=== PATIENT | female | born 1980 | race Hispanic/Latino ===

== ENCOUNTER 2016-10-15 22:15 | Emergency (ER) | payer OTHER ==
[2016-10-15 22:51] LABS: MANUAL DIFF NEEDED? NO
[2016-10-15 22:53] LABS: BASO% 0.6 % (0.0-0.8); EOS# 0.48 X1000 (0.0-0.7); HEMATOCRIT 41.8 % (37.0-47.0); HEMOGLOBIN 14.4 g/dL (12.0-16.0); IMM GRAN# 0.04 X1000 (0.0-0.04); IMM GRAN% 0.4 % (0.0-0.5); LYMPH# 3.89 X1000 (1.2-3.4); LYMPH% 40.3 % (20.5-51.1); MCHC 34.4 g/dL (33-37); MCV 90.1 FL (81-99); MONO# 0.99 X1000 (0.11-0.59); MONO% 10.2 % (1.7-9.3); MPV 10.6 FL (7.4-10.4); NEUT% 43.5 % (42.2-75.2); PLT 265 X1000 (130-400); RBC 4.64 XMIL (4.2-5.4)
[2016-10-15] MEDS ORDERED: NS 1,000 ML IV ONE (23:31)
[2016-10-15] MEDS ORDERED: ZOFRAN IV ONE (23:32)
[2016-10-15] MEDS ORDERED: MORPHINE IV ONE (23:32)
[2016-10-15 23:47] LABS: AGAP 15; ALBUMIN 4.2 g/dL (3.5-5.0); ALKALINE PHOSPHATASE 52 U/L (32-104); AMYLASE 97 U/L (20-200); BUN 14 mg/dL (8-22); CALCIUM 9.4 mg/dL (8.8-10.2); CHLORIDE 104 mmol/L (98-107); COSMO 284; GOT 14 U/L (10-30); GPT 7 U/L (10-36); LIPASE 66 U/L (13-60); POTASSIUM 3.8 mmol/L (3.5-5.1); SODIUM 142 mmol/L (136-145); TCO2 23 mmol/L (25-35); TOTAL BILIRUBIN 0.16 mg/dL (0.20-1.00)
--- NOTE | 2016-10-16 01:01 | PROVIDER DOCUMENTATION ---
HPI-Abdominal Pain/GI Problem - General Chief Complaint: Abdominal Pain Stated Complaint: ABD PAIN, THOMAS Time Seen by Provider: 10/15/16 23:20 Source: patient, family Allergies/Adverse Reactions: Patient Allergies Allergy/AdvReac Type Severity Reaction Status Date / Time prochlorperazine AdvReac IT MAKES Verified 10/01/16 16:14 [From Compazine] ME COME OUT OF MY SKIN prochlorperazine edisylate * AdvReac IT MAKES Verified 10/01/16 16:14 [From Compazine] ME COME OUT OF MY SKIN prochlorperazine maleate * AdvReac IT MAKES Verified 10/01/16 16:14 [From Compazine] ME COME OUT OF MY SKIN Home Medications: Levothyroxine Sodium [Synthroid] 137 mcg PO DAILY 10/01/16 Lorazepam [Ativan] 1 mg PO QHS PRN 10/01/16 - History of Present Illness-ABD Nature of Presenting Problems: 35 year old WF presents with c/o of a two day history of abdominal pain, nausea , vomiting, 6 times today, fever to 102 x 2 days. pt reports she was evaluated last week for the same, given IV pain meds, was dc'd home and was improved until yesterday. Abdominal Pain Onset Location: reports: RUQ, epigastric, flank (bilateral) Pain Radiation: reports: RUQ Quality of Pain: reports: aching, burning, cramping, dull Severity in ED: reports: mild Onset/Duration: reports: 2 days ago Timing: reports: still present, constant, getting worse Activities at Onset: reports: none Exposure to sick contacts?: No Modifying Factors: improves with: nothing Associated Symptoms: reports: fatigue, fever/chills, loss of appetite, malaise, nausea, vomiting. denies: diarrhea, genitourinary problems, headaches Last BM: 24 hours ago Dark Stools Present?: reports: none noticed Rectal Bleeding: reports: none Rectal Pain: reports: none # of Vomiting Episodes: 6 Emesis Description: reports: none, clear. denies: red blood, coffee grounds, blood-streaked Similar Symptoms Previously?: Yes Recently seen or treated by another doctor?: Yes (last week, pt was evaluted for same) Review of Systems - Adult - REVIEW OF SYSTEMS - ADULT Constitutional: reports: see HPI, chills, fever, fatique Eyes: reports: no symptoms reported. denies: discharge, blurred vision, double vision, redness Ears, Nose, Mouth & Throat: reports: no symptoms reported. denies: ear discharge, ear pain, nose pain, loose teeth, throat pain, throat swelling Cardiovascular: reports: no symptoms reported. denies: chest pain, palpitations , syncope Respiratory: reports: no symptoms reported. denies: chronic cough, cough, shortness of breath, wheezing Gastrointestinal: reports: see HPI, abdominal pain, nausea, poor appetite, vomiting. denies: hematemesis, constipation, diarrhea, difficulty swallowing, frequent heartburn, rectal bleeding Genitourinary: reports: see HPI, flank pain. denies: dysuria, frequent UTI's, hematuria, urgency Musculoskeletal: reports: no symptoms reported. denies: bone pain, joint pain, neck pain Integumentary: reports: no symptoms reported. denies: hives, itching, rash, skin sores/ulcer Neurological: reports: no symptoms reported. denies: ataxia, seizure, tremors Psychiatric: reports: no symptoms reported Endocrine: reports: no symptoms reported Hematologic/Lymphatic: reports: no symptoms reported Allergic/Immunologic: reports: no symptoms reported All Other Systems: Reviewed and Negative Past History - Adult - PAST MEDICAL HISTORY-ADULT Review of Records: reports: Old Records Reviewed, Nursing Assessment Review, Medications Reviewed, Social history reviewed & non-contributory. Major Childhood Illnesses: reports: denies history Cardiovascular: reports: denies history Respiratory: reports: denies history Gastrointestinal: reports: denies history Obstetrical/Gynecological: reports: denies history Genitourinary: reports: denies history Musculoskeletal: reports: denies history Neurological: reports: denies history Endocrine/Immune: reports: denies history Other Conditions: reports: denies history - FAMILY HISTORY Family History: reviewed, not pertinent - SOCIAL HISTORY Smoking: cigarettes, less than 1 pack/day Provider spent 3-5 mins advising pt. on dangers of tobacco.: Discussed manners to quit use, and f/u contacts for add'l counseling. Substance Use: none/never Alcohol Use Frequency: never Physical Exam-General - PHYSICAL EXAM-ADULT Initial Vital Signs Reviewed: Yes - CONSTITUTIONAL General Appearance: appears well, alert, no apparent distress. negative: mild distress, moderate distress, severe distress - EYES Eyes: PERRL/EOMI, pink conjunctivae. negative: conjuctival exudate, pale conjunctivae, sclera injected, scleral icterus, subconjunctival hemorrhage - HEAD, EARS, NOSE, MOUTH & THROAT HENMT: normocephalic/atraumatic, moist mucous membranes, normal ENT inspection - NECK Neck: non-tender, full range of motion, supple, normal inspection - RESPIRATORY Respiratory: chest non-tender, lungs clear, normal breath sounds, no pleuratic chest pain, no respiratory distress, no accessory muscle use. negative: respiratory distress, decreased breath sounds, accessory muscle use, crackles, rales, rhonchi, stridor, wheezing - CARDIOVASCULAR Cardiovascular: normal peripheral pulses, regular rate, rhythm, no edema - GASTROINTESTINAL (ABDOMEN) Abdominal Exam: normal bowel sounds, soft, tenderness (epigastric/RUQ). negative: non tender, distended, guarding, rigid, rebound - GENITOURINARY Female Genitalia/Pelvic Exam: deferred - LYMPHATIC Lymphatic: no adenopathy - MUSCULOSKELETAL Back Exam: normal inspection, no vertebral tenderness, CVA tenderness (bilateral ). negative: no CVA tenderness Extremity: normal range of motion, non-tender, normal gait Peripheral Pulses: radial (R): 3+, radial (L): 3+ - SKIN Integumentary: normal color, normal turgor, warm/dry. negative: pallor, petechiae, purpura - NEUROLOGIC Neurologic: grossly normal, no motor/sensory deficits - PSYCHIATRIC Psych/Mental Status: normal mood/affect, normal thought content, normal thought process, oriented x 3 Progress - PLAN OF CARE/RESULTS Progress/Plan/Lab Results: Laboratory Tests 10/15/16 10/15/16 10/16/16 22:38 22:38 01:06 WBC 9.66 RBC 4.64 Hgb 14.4 Hct 41.8 MCV 90.1 MCH 31.0 MCHC 34.4 RDW Std Deviation 13.4 Plt Count 265 MPV 10.6 H Immature Gran % (Auto) 0.4 Neut % (Auto) 43.5 Lymph % (Auto) 40.3 [place] % (Auto) 10.2 H Eos % (Auto) 5.0 Baso % (Auto) 0.6 Immature Gran # (Auto) 0.04 Neut # (Auto) 4.20 Lymph # (Auto) 3.89 H [place] # (Auto) 0.99 H Eos # (Auto) 0.48 Baso # (Auto) 0.06 Sodium 142 Potassium 3.8 Chloride 104 Carbon Dioxide 23 L Anion Gap 15 BUN 14 Creatinine 1.0 H Estimated GFR/1.73 m2 > 60 BUN/Creatinine Ratio 14 Glucose 106 H Calculated Osmolality 284 Calcium 9.4 Total Bilirubin 0.16 L AST 14 ALT 7 L Alkaline Phosphatase 52 Total Protein 7.0 Albumin 4.2 Globulin 2.8 Albumin/Globulin Ratio 1.5 Amylase 97 Lipase 66 H Serum , Qual NEGATIVE Urine Source Urine Color Urine Turbidity Urine pH Ur Specific [place] Urine Protein Ur Glucose (Stick) Ur Ketones (Stick) Urine Blood Urine Nitrite Urine Bilirubin Urobilinogen Dipstick Urine Leukocytes Urine WBC (Auto) Urine RBC (Auto) U Epithel Cells (Auto) Urine Bacteria (Auto) 10/16/16 01:07 WBC RBC Hgb Hct MCV MCH MCHC RDW Std Deviation Plt Count MPV Immature Gran % (Auto) Neut % (Auto) Lymph % (Auto) [place] % (Auto) Eos % (Auto) Baso % (Auto) Immature Gran # (Auto) Neut # (Auto) Lymph # (Auto) [place] # (Auto) Eos # (Auto) Baso # (Auto) Sodium Potassium Chloride Carbon Dioxide Anion Gap BUN Creatinine Estimated GFR/1.73 m2 BUN/Creatinine Ratio Glucose Calculated Osmolality Calcium Total Bilirubin AST ALT Alkaline Phosphatase Total Protein Albumin Globulin Albumin/Globulin Ratio Amylase Lipase Serum , Qual Urine Source CLEAN CATCH Urine Color YELLOW Urine Turbidity CLEAR Urine pH 6.0 Ur Specific [place] 1.035 Urine Protein TRACE A Ur Glucose (Stick) NEGATIVE Ur Ketones (Stick) NEGATIVE Urine Blood NEGATIVE Urine Nitrite NEGATIVE Urine Bilirubin NEGATIVE Urobilinogen Dipstick NORMAL Urine Leukocytes NEGATIVE Urine WBC (Auto) <10 Urine RBC (Auto) <10 U Epithel Cells (Auto) >10 A Urine Bacteria (Auto) 1+ Orders Category Date Time Status Saline Loc DIRECTED Care 10/15/16 22:29 Active NPO Diet 10/15/16 22:29 Active FLAT/UPRIGHT ABD/1 VIEW CHEST [RAD] Stat Exams 10/15/16 23:34 Taken AMYLASE [CHEM] Stat Lab 10/15/16 22:38 Completed CBC WITH ELECTRONIC DIFF [HEME] Stat Lab 10/15/16 22:38 Completed COMPREHENSIVE METABOLIC PANEL [CHEM] Stat Lab 10/15/16 22:38 Completed LIPASE [CHEM] Stat Lab 10/15/16 22:38 Completed TEST-SERUM [PREG] Stat Lab 10/16/16 01:06 Completed URINALYSIS W/POSS RFLX CULT [URINALYSIS] Stat Lab 10/16/16 01:07 Completed 0.9% Sodium Chloride Inj [Ns] 1,000 ml Med 10/15/16 23:31 Discontinued IV 999 mls/hr Morphine Med 10/15/16 23:32 Discontinued 4 mg IV NOW ONE Morphine Med 10/16/16 02:45 Discontinued 4 mg IV NOW ONE Ondansetron [Zofran] Med 10/15/16 23:32 Discontinued 4 mg IV NOW ONE Ondansetron [Zofran] Med 10/16/16 02:45 Discontinued 4 mg IV NOW ONE Vital Signs - 24 hr 10/15/16 22:27 Temperature 98.3 F Pulse Rate 102 H Respiratory 20 Rate Blood Pressure 156/88 O2 Sat by Pulse 100 Oximetry Departure - Departure Time of Disposition Order: 02:33 DIAGNOSIS: Biliary colic Abdominal pain Qualifiers: Abdominal location: upper abdomen, unspecified Qualified Code(s): R10.10 - Upper abdominal pain, unspecified Disposition: HOME 01 Certified Medical Emergency: Emergent Condition: Stable Additional Instructions: Follow up for a right upper quadrant ultrasound and call Dr. Mata for an appointment. Spurger diet, avoid fatty foods. ED Follow Up Instructions: You have been treated by a care provider in the Emergency Department. These instructions are being provided to you so you can have an understanding of how to care for yourself upon discharge. Upon discharge from the Emergency Department, you are responsible for making arrangements for follow-up care by a physician of your choice. Take all prescribed medications as directed. Return to the Emergency Department immediately for any new or worsening symptoms. You may call the Physician Referral phone number at [phone] to obtain a list of Physicians who are taking new patients. Referrals: None,PCP [Primary Care Provider] - Kodak Mata MD [STAFF PHYSICIAN] - Forms: Return to School/Parent Work Instructions: Abdominal Pain, Adult Attestation - Physician/ Mid-level Attestation Patient care was provided by Mid-level provider (QUILL WORKER/PA):: Yes Mid-level provider:: Clarke,Evangelein H. Mid-level documentation review:: The Mid-level provider documentation, treatment plan and medical decision making was reviewed by the physician who agrees with all treatment and medical decision making by the MLP.
[2016-10-16 01:44] LABS: URINE CULTURE NEEDED? NO; URINE MICRO REVIEW NEEDED? NO; URINE SOURCE CLEAN CATCH
[2016-10-16 01:58] LABS: BILIRUBIN URINE NEGATIVE (NEGATIVE); BLOOD URINE NEGATIVE (NEGATIVE); COLOR YELLOW; GLUCOSE URINE NEGATIVE (NEGATIVE); LEUKOCYTES URINE NEGATIVE (NEGATIVE); NITRITE URINE NEGATIVE (NEGATIVE); PROTEIN URINE TRACE mg/dL (NEGATIVE); SP GRAVITY URINE 1.035; TURBIDITY URINE CLEAR (CLEAR); UROBILINOGEN URINE NORMAL (NORMAL)
[2016-10-16 02:02] LABS: UR EPITHELIAL CELLS >10 /HPF (<10); URINE BACTERIA 1+ /HPF; URINE RBC <10 /HPF (<10); URINE WBC <10 /HPF (<10)
[2016-10-16] MEDS ORDERED: ZOFRAN IV ONE (02:45)
[2016-10-16] MEDS ORDERED: MORPHINE IV ONE (02:45)
[2016-10-16] MEDS ORDERED: NORCO-7.5 PO ONE (03:20)
[2016-10-16 04:05] VITALS: BP 132/80
--- NOTE | 2016-10-16 08:49 | Diag Imaging Result Document ---
PROCEDURE NAME: FLAT/UPRIGHT ABD/1 VIEW CHEST - 10/15/2016 PLAIN RADIOGRAPH OF THE CHEST AND ABDOMEN, THREE VIEWS: COMPARISON: None available. FINDINGS: There are unremarkable bowel gas and stool patterns. There is no evidence of bowel obstruction. There is no evidence of large volume free abdominal gas. There is no discrete organomegaly. The lungs are grossly clear. The cardiomediastinal silhouette and upper airway are grossly unremarkable. IMPRESSION: No evidence of acute chest or abdominal pathology.
== END 2016-10-16 04:14 | disposition home or self-care (01) ==
LOC: ED 22:15
DX: K83.9 Disease of biliary tract, unspecified (principal); R10.11 Right upper quadrant pain; R10.13 Epigastric pain; R10.9 Unspecified abdominal pain; R53.83 Other fatigue; R50.9 Fever, unspecified; R53.81 Other malaise; R11.2 Nausea with vomiting, unspecified; F17.210 Nicotine dependence, cigarettes, uncomplicated; Z71.6 Tobacco abuse counseling; Z79.899 Other long term (current) drug therapy
CPT/HCPCS: 36415; 74022; 80053; 81001; 82150; 83690; 84703; 85025; 96374; 96375; 96376; J2270; J2405; J7030

== ENCOUNTER 2016-10-18 12:41 | Emergency (ER) ==
[2016-10-18 14:02] LABS: ALBUMIN 4.4 g/dL (3.5-5.0); CALCIUM 9.1 mg/dL (8.8-10.2); TOTAL BILIRUBIN 0.45 mg/dL (0.20-1.00); TOTAL PROTEIN 7.4 g/dL (6.3-8.3)
[2016-10-18 14:09] LABS: URINE MICRO REVIEW NEEDED? NO; URINE SOURCE CLEAN CATCH
[2016-10-18 14:19] LABS: MANUAL DIFF NEEDED? NO
[2016-10-18 14:22] LABS: BASO% 1.4 % (0.0-0.8); EOS# 0.42 X1000 (0.0-0.7); EOS% 5.7 % (0.0-10.0); HEMATOCRIT 44.8 % (37.0-47.0); HEMOGLOBIN 14.9 g/dL (12.0-16.0); IMM GRAN# 0.02 X1000 (0.0-0.04); IMM GRAN% 0.3 % (0.0-0.5); LYMPH# 2.96 X1000 (1.2-3.4); LYMPH% 40.3 % (20.5-51.1); MCH 30.1 PG (27-31); MCHC 33.3 g/dL (33-37); MCV 90.5 FL (81-99); MONO# 0.83 X1000 (0.11-0.59); MONO% 11.3 % (1.7-9.3); MPV 11.5 FL (7.4-10.4); PLT 291 X1000 (130-400); RBC 4.95 XMIL (4.2-5.4)
[2016-10-18 14:22] LABS: BILIRUBIN URINE NEGATIVE (NEGATIVE); BLOOD URINE NEGATIVE (NEGATIVE); COLOR YELLOW; GLUCOSE URINE NEGATIVE (NEGATIVE); LEUKOCYTES URINE TRACE (NEGATIVE); NITRITE URINE NEGATIVE (NEGATIVE); PH URINE 5.5; PROTEIN URINE TRACE mg/dL (NEGATIVE); SP GRAVITY URINE 1.022; TURBIDITY URINE HAZY (CLEAR); UROBILINOGEN URINE NORMAL (NORMAL)
[2016-10-18 14:24] LABS: UR EPITHELIAL CELLS >10 /HPF (<10); URINE BACTERIA 1+ /HPF; URINE CULTURE NEEDED? YES; URINE RBC <10 /HPF (<10); URINE WBC <10 /HPF (<10)
--- NOTE | 2016-10-18 16:06 | PROVIDER DOCUMENTATION ---
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) Similar Symptoms Previously?: Yes Recently seen or treated by another doctor?: Yes <Jada Rodriguez - Last Filed: 10/18/16 16:27> <Robin Plaza - Last Filed: 10/19/16 06:46> - General Chief Complaint: Abdominal Pain Stated Complaint: ABD PAIN,VOMITING Time Seen by Provider: 10/18/16 15:17 Allergies/Adverse Reactions: Patient Allergies Allergy/AdvReac Type Severity Reaction Status Date / Time prochlorperazine AdvReac IT MAKES Verified 10/18/16 16:30 [From Compazine] ME COME OUT OF MY SKIN prochlorperazine edisylate * AdvReac IT MAKES Verified 10/18/16 16:30 [From Compazine] ME COME OUT OF MY SKIN prochlorperazine maleate * AdvReac IT MAKES Verified 10/18/16 16:30 [From Compazine] ME COME OUT OF MY SKIN Home Medications: Levothyroxine Sodium [Synthroid] 137 mcg PO DAILY 10/01/16 - History of Present Illness-ABD Nature of Presenting Problems: Pt is a 35 yof who came to the ED with a cc of abdominal pain. Pt reports she wants her gallbladder removed. Pt labs reports nothing is wrong. Pt has been here for the last three days. (Jada Rodriguez) Review of Systems - Adult - REVIEW OF SYSTEMS - ADULT Constitutional: denies: chills, fever Eyes: reports: no symptoms reported Ears, Nose, Mouth & Throat: denies: loose teeth, hoarseness Cardiovascular: reports: no symptoms reported Respiratory: denies: pleurisy, shortness of breath Gastrointestinal: reports: abdominal pain. denies: diarrhea, difficulty swallowing, nausea, vomiting Genitourinary: denies: hematuria, urgency Musculoskeletal: reports: no symptoms reported Integumentary: reports: no symptoms reported Neurological: reports: no symptoms reported Psychiatric: reports: no symptoms reported Endocrine: reports: no symptoms reported Hematologic/Lymphatic: reports: no symptoms reported Allergic/Immunologic: reports: no symptoms reported All Other Systems: Reviewed and Negative <Jada Rodriguez Last Filed: 10/18/16 16:27> Past History - Adult - PAST MEDICAL HISTORY-ADULT Review of Records: reports: Old Records Reviewed, Nursing Assessment Review Major Childhood Illnesses: reports: denies history Cardiovascular: reports: denies history Respiratory: reports: denies history Gastrointestinal: reports: denies history Obstetrical/Gynecological: reports: denies history Genitourinary: reports: denies history Musculoskeletal: reports: denies history Neurological: reports: denies history Endocrine/Immune: reports: thyroid disorder (hypo) Other Conditions: reports: denies history - PRIOR SURGERIES/PROCEDURES Surgical/Procedure History: reports: appendectomy, hysterectomy - FAMILY HISTORY Family History: reviewed, not pertinent <Jada Rodriguez Last Filed: 10/18/16 16:27> Physical Exam-General - PHYSICAL EXAM-ADULT Initial Vital Signs Reviewed: Yes - CONSTITUTIONAL General Appearance: appears well, alert, no apparent distress - EYES Eyes: PERRL/EOMI, pink conjunctivae - HEAD, EARS, NOSE, MOUTH & THROAT HENMT: normocephalic/atraumatic, moist mucous membranes, normal ENT inspection - NECK Neck: non-tender, full range of motion, normal inspection - RESPIRATORY Respiratory: chest non-tender, lungs clear, normal breath sounds - CARDIOVASCULAR Cardiovascular: normal peripheral pulses, regular rate, rhythm, no edema - GASTROINTESTINAL (ABDOMEN) Abdominal Exam: normal bowel sounds, non tender, soft - LYMPHATIC Lymphatic: no adenopathy - MUSCULOSKELETAL Back Exam: normal inspection, no CVA tenderness, no vertebral tenderness Extremity: normal range of motion, non-tender, normal gait - SKIN Integumentary: normal color, normal turgor, warm/dry - NEUROLOGIC Neurologic: grossly normal, no motor/sensory deficits - PSYCHIATRIC Psych/Mental Status: normal mood/affect, normal thought content, normal thought process, oriented x 3 <Jada Rodriguez Last Filed: 10/18/16 16:27> Progress <Jada Rodriguez Filed: 10/18/16 16:27> - REASSESSMENT Reassessment #1 Status: other (Pt has total of 4 ER visits since 10/01/16. She had normal labs and normal CT US for the same abd pain repeatedly. Reports she meoved her from [place] and she had multiple w/u before moving here as well, and no positive findings.) <Rboin Plaza X - Last Filed: 10/19/16 06:46> - PLAN OF CARE/RESULTS Progress/Plan/Lab Results: Vital Signs - 24 hr 10/18/16 13:05 Temperature 97.4 F L Pulse Rate 67 Respiratory 18 Rate Blood Pressure 111/65 O2 Sat by Pulse 100 Oximetry Orders Category Date Time Status NPO Diet 10/18/16 13:08 Active AMYLASE [CHEM] Stat Lab 10/18/16 13:09 Completed CBC WITH ELECTRONIC DIFF [HEME] Stat Lab 10/18/16 13:09 Completed COMPREHENSIVE METABOLIC PANEL [CHEM] Stat Lab 10/18/16 13:09 Completed LIPASE [CHEM] Stat Lab 10/18/16 13:09 Completed TEST-URINE [PREG] Stat Lab 10/18/16 13:19 Completed URINALYSIS W/POSS RFLX CULT [URINALYSIS] Stat Lab 10/18/16 13:19 Completed URINE CULTURE [RM] Routine Lab 10/18/16 14:37 Received Laboratory Tests 10/18/16 10/18/16 10/18/16 13:09 13:09 13:09 WBC Cancelled 7.34 RBC Cancelled 4.95 Hgb Cancelled 14.9 Hct Cancelled 44.8 MCV Cancelled 90.5 MCH Cancelled 30.1 MCHC Cancelled 33.3 RDW Std Deviation Cancelled 13.3 Plt Count Cancelled 291 MPV Cancelled 11.5 H Immature Gran % (Auto) Cancelled 0.3 Neut % (Auto) Cancelled 41.0 L Lymph % (Auto) Cancelled 40.3 [place] % (Auto) Cancelled 11.3 H Eos % (Auto) Cancelled 5.7 Baso % (Auto) Cancelled 1.4 H Immature Gran # (Auto) Cancelled 0.02 Neut # (Auto) Cancelled 3.01 Lymph # (Auto) Cancelled 2.96 [place] # (Auto) Cancelled 0.83 H Eos # (Auto) Cancelled 0.42 Baso # (Auto) Cancelled 0.10 Corrected WBC (Man) Cancelled Sodium 132 L Potassium 4.0 Chloride 96 L Carbon Dioxide 26 Anion Gap 10 BUN 13 Creatinine 1.2 H Estimated GFR/1.73 m2 51 BUN/Creatinine Ratio 11 Glucose 83 Calculated Osmolality 264 Calcium 9.1 Total Bilirubin 0.45 AST 16 ALT 8 L Alkaline Phosphatase 58 Total Protein 7.4 Albumin 4.4 Globulin 3.0 Albumin/Globulin Ratio 1.5 Amylase 89 Lipase 37 Urine Source Urine Color Urine Turbidity Urine pH Ur Specific [place] Urine Protein Ur Glucose (Stick) Ur Ketones (Stick) Urine Blood Urine Nitrite Urine Bilirubin Urobilinogen Dipstick Urine Leukocytes Urine WBC (Auto) Urine RBC (Auto) U Epithel Cells (Auto) Urine Bacteria (Auto) Urine Test 10/18/16 10/18/16 13:19 13:19 WBC RBC Hgb Hct MCV MCH MCHC RDW Std Deviation Plt Count MPV Immature Gran % (Auto) Neut % (Auto) Lymph % (Auto) [place] % (Auto) Eos % (Auto) Baso % (Auto) Immature Gran # (Auto) Neut # (Auto) Lymph # (Auto) [place] # (Auto) Eos # (Auto) Baso # (Auto) Corrected WBC (Man) Sodium Potassium Chloride Carbon Dioxide Anion Gap BUN Creatinine Estimated GFR/1.73 m2 BUN/Creatinine Ratio Glucose Calculated Osmolality Calcium Total Bilirubin AST ALT Alkaline Phosphatase Total Protein Albumin Globulin Albumin/Globulin Ratio Amylase Lipase Urine Source CLEAN CATCH Urine Color YELLOW Urine Turbidity HAZY Urine pH 5.5 Ur Specific [place] 1.022 Urine Protein TRACE A Ur Glucose (Stick) NEGATIVE Ur Ketones (Stick) NEGATIVE Urine Blood NEGATIVE Urine Nitrite NEGATIVE Urine Bilirubin NEGATIVE Urobilinogen Dipstick NORMAL Urine Leukocytes TRACE A Urine WBC (Auto) <10 Urine RBC (Auto) <10 U Epithel Cells (Auto) >10 A Urine Bacteria (Auto) 1+ Urine Test NEGATIVE (Jada Rodriguez) Laboratory Results - last 24 hr 10/18/16 10/18/16 10/18/16 13:09 13:09 13:09 WBC Cancelled 7.34 RBC Cancelled 4.95 Hgb Cancelled 14.9 Hct Cancelled 44.8 MCV Cancelled 90.5 MCH Cancelled 30.1 MCHC Cancelled 33.3 RDW Std Deviation Cancelled 13.3 Plt Count Cancelled 291 MPV Cancelled 11.5 H Immature Gran % (Auto) Cancelled 0.3 Neut % (Auto) Cancelled 41.0 L Lymph % (Auto) Cancelled 40.3 [place] % (Auto) Cancelled 11.3 H Eos % (Auto) Cancelled 5.7 Baso % (Auto) Cancelled 1.4 H Immature Gran # (Auto) Cancelled 0.02 Neut # (Auto) Cancelled 3.01 Lymph # (Auto) Cancelled 2.96 [place] # (Auto) Cancelled 0.83 H Eos # (Auto) Cancelled 0.42 Baso # (Auto) Cancelled 0.10 Corrected WBC (Man) Cancelled Sodium 132 L Potassium 4.0 Chloride 96 L Carbon Dioxide 26 Anion Gap 10 BUN 13 Creatinine 1.2 H Estimated GFR/1.73 m2 51 BUN/Creatinine Ratio 11 Glucose 83 Calculated Osmolality 264 Calcium 9.1 Total Bilirubin 0.45 AST 16 ALT 8 L Alkaline Phosphatase 58 Total Protein 7.4 Albumin 4.4 Globulin 3.0 Albumin/Globulin Ratio 1.5 Amylase 89 Lipase 37 Urine Source Urine Color Urine Turbidity Urine pH Ur Specific [place] Urine Protein Ur Glucose (Stick) Ur Ketones (Stick) Urine Blood Urine Nitrite Urine Bilirubin Urobilinogen Dipstick Urine Leukocytes Urine WBC (Auto) Urine RBC (Auto) U Epithel Cells (Auto) Urine Bacteria (Auto) Urine Test 10/18/16 10/18/16 13:19 13:19 WBC RBC Hgb Hct MCV MCH MCHC RDW Std Deviation Plt Count MPV Immature Gran % (Auto) Neut % (Auto) Lymph % (Auto) [place] % (Auto) Eos % (Auto) Baso % (Auto) Immature Gran # (Auto) Neut # (Auto) Lymph # (Auto) [place] # (Auto) Eos # (Auto) Baso # (Auto) Corrected WBC (Man) Sodium Potassium Chloride Carbon Dioxide Anion Gap BUN Creatinine Estimated GFR/1.73 m2 BUN/Creatinine Ratio Glucose Calculated Osmolality Calcium Total Bilirubin AST ALT Alkaline Phosphatase Total Protein Albumin Globulin Albumin/Globulin Ratio Amylase Lipase Urine Source CLEAN CATCH Urine Color YELLOW Urine Turbidity HAZY Urine pH 5.5 Ur Specific [place] 1.022 Urine Protein TRACE A Ur Glucose (Stick) NEGATIVE Ur Ketones (Stick) NEGATIVE Urine Blood NEGATIVE Urine Nitrite NEGATIVE Urine Bilirubin NEGATIVE Urobilinogen Dipstick NORMAL Urine Leukocytes TRACE A Urine WBC (Auto) <10 Urine RBC (Auto) <10 U Epithel Cells (Auto) >10 A Urine Bacteria (Auto) 1+ Urine Test NEGATIVE Orders Category Date Time Status NPO Diet 10/18/16 13:08 Active AMYLASE [CHEM] Stat Lab 10/18/16 13:09 Completed CBC WITH ELECTRONIC DIFF [HEME] Stat Lab 10/18/16 13:09 Completed COMPREHENSIVE METABOLIC PANEL [CHEM] Stat Lab 10/18/16 13:09 Completed LIPASE [CHEM] Stat Lab 10/18/16 13:09 Completed TEST-URINE [PREG] Stat Lab 10/18/16 13:19 Completed URINALYSIS W/POSS RFLX CULT [URINALYSIS] Stat Lab 10/18/16 13:19 Completed URINE CULTURE [RM] Routine Lab 10/18/16 14:37 Received Hydrocodone/APAP 7.5 mg/325 mg [[place]-7.5] Med 10/18/16 16:27 Discontinued 1 each PO NOW ONE Vital Signs Temp Pulse Resp BP Pulse Ox 10/18/16 16:51 64 16 117/68 100 10/18/16 13:05 97.4 F L 67 18 111/65 100 prochlorperazine [From Compazine] Adverse Reaction (Verified 10/18/16 16:30) IT MAKES ME COME OUT OF MY SKIN prochlorperazine edisylate * [From Compazine] Adverse Reaction (Verified 16:30) IT MAKES ME COME OUT OF MY SKIN prochlorperazine maleate * [From Compazine] Adverse Reaction (Verified 10/18/16 16:30) IT MAKES ME COME OUT OF MY SKIN Levothyroxine Sodium [Synthroid] 137 mcg PO DAILY 10/01/16 Hydrocodone/APAP 5 mg/325 mg [[place]-5] 1 each PO Q8H PRN PRN #10 tablet Promethazine [Phenergan] 25 mg PO Q8H PRN PRN #10 tablet 10/18/16 Dietary Diet NPO Start FriOct 18 1308 Laboratory 10/18/16 10/18/16 10/18/16 13:19 13:19 13:09 WBC 7.34 RBC 4.95 Hgb 14.9 Hct 44.8 MCV 90.5 MCH 30.1 MCHC 33.3 RDW Std Deviation 13.3 Plt Count 291 MPV 11.5 H Immature Gran % (Auto) 0.3 Neut % (Auto) 41.0 L Lymph % (Auto) 40.3 [place] % (Auto) 11.3 H Eos % (Auto) 5.7 Baso % (Auto) 1.4 H Immature Gran # (Auto) 0.02 Neut # (Auto) 3.01 Lymph # (Auto) 2.96 [place] # (Auto) 0.83 H Eos # (Auto) 0.42 Baso # (Auto) 0.10 Corrected WBC (Man) Sodium Potassium Chloride Carbon Dioxide Anion Gap BUN Creatinine Estimated GFR/1.73 m2 BUN/Creatinine Ratio Glucose Calculated Osmolality Calcium Total Bilirubin AST ALT Alkaline Phosphatase Total Protein Albumin Globulin Albumin/Globulin Ratio Amylase Lipase Urine Source CLEAN CATCH Urine Color YELLOW Urine Turbidity HAZY Urine pH 5.5 Ur Specific [place] 1.022 Urine Protein TRACE A Ur Glucose (Stick) NEGATIVE Ur Ketones (Stick) NEGATIVE Urine Blood NEGATIVE Urine Nitrite NEGATIVE Urine Bilirubin NEGATIVE Urobilinogen Dipstick NORMAL Urine Leukocytes TRACE A Urine WBC (Auto) <10 Urine RBC (Auto) <10 U Epithel Cells (Auto) >10 A Urine Bacteria (Auto) 1+ Urine Test NEGATIVE 10/18/16 10/18/16 13:09 13:09 WBC Cancelled RBC Cancelled Hgb Cancelled Hct Cancelled MCV Cancelled MCH Cancelled MCHC Cancelled RDW Std Deviation Cancelled Plt Count Cancelled MPV Cancelled Immature Gran % (Auto) Cancelled Neut % (Auto) Cancelled Lymph % (Auto) Cancelled [place] % (Auto) Cancelled Eos % (Auto) Cancelled Baso % (Auto) Cancelled Immature Gran # (Auto) Cancelled Neut # (Auto) Cancelled Lymph # (Auto) Cancelled [place] # (Auto) Cancelled Eos # (Auto) Cancelled Baso # (Auto) Cancelled Corrected WBC (Man) Cancelled Sodium 132 L Potassium 4.0 Chloride 96 L Carbon Dioxide 26 Anion Gap 10 BUN 13 Creatinine 1.2 H Estimated GFR/1.73 m2 51 BUN/Creatinine Ratio 11 Glucose 83 Calculated Osmolality 264 Calcium 9.1 Total Bilirubin 0.45 AST 16 ALT 8 L Alkaline Phosphatase 58 Total Protein 7.4 Albumin 4.4 Globulin 3.0 Albumin/Globulin Ratio 1.5 Amylase 89 Lipase 37 Urine Source Urine Color Urine Turbidity Urine pH Ur Specific [place] Urine Protein Ur Glucose (Stick) Ur Ketones (Stick) Urine Blood Urine Nitrite Urine Bilirubin Urobilinogen Dipstick Urine Leukocytes Urine WBC (Auto) Urine RBC (Auto) U Epithel Cells (Auto) Urine Bacteria (Auto) Urine Test (Robin Plaza) Departure - Departure Time of Disposition Order: 16:27 Certified Medical Emergency: Emergent <Jada Rodriguez - Last Filed: 10/18/16 16:27> - Departure Certified Medical Emergency: Emergent <Robin Plaza - Last Filed: 10/19/16 06:46> - Departure DIAGNOSIS: Abdominal pain Qualifiers: Abdominal location: unspecified location Qualified Code(s): R10.9 - Unspecified abdominal pain Disposition: HOME 01 Condition: Stable Prescriptions: Hydrocodone/APAP 5 mg/325 mg [[place]-5] 1 each PO Q8H PRN PRN #10 tablet PRN Reason: Pain Promethazine [Phenergan] 25 mg PO Q8H PRN PRN #10 tablet PRN Reason: Nausea And Vomiting Referrals: None,PCP [Primary Care Provider] - Instructions: Abdominal Pain, Adult, [id number] Attestation - Scribe Verification/Attestation Scribe:: Jada Rodriguez Acting as Scribe for:: Robin Plaza Scribe documention review:: This chart was documented by a scribe and accurately reflects the service the provider performed and the decisions made by the provider. <Jada Rodriguez - Last Filed: 10/18/16 16:27> Physician Attestation
[2016-10-18] MEDS ORDERED: NORCO-7.5 PO ONE (16:27)
[2016-10-18 16:58] VITALS: BP 117/68
== END 2016-10-18 16:53 | disposition home or self-care (01) ==
LOC: ED 12:41
DX: R10.9 Unspecified abdominal pain (principal); E03.9 Hypothyroidism, unspecified; Z79.899 Other long term (current) drug therapy
CPT/HCPCS: 80053; 81001; 81025; 82150; 83690; 85025; 87088; 99282

== ENCOUNTER 2019-03-16 11:42 | Observation (INO) ==
[2019-03-16] MEDS ORDERED: BENADRYL IV ONE (12:35)
[2019-03-16] MEDS ORDERED: EPINEPHRINE IM ONE (12:35)
[2019-03-16 13:06] LABS: BASO% 0.3 % (0.0-0.8); EOS# 0.04 X1000 (0.0-0.7); EOS% 0.6 % (0.0-10.0); HEMATOCRIT 40.7 % (37.0-47.0); HEMOGLOBIN 13.8 g/dL (12.0-16.0); IMM GRAN% 0.3 % (0.0-0.5); LYMPH# 0.95 X1000 (1.2-3.4); LYMPH% 14.3 % (20.5-51.1); MCH 29.3 PG (27-31); MCHC 33.9 g/dL (33-37); MCV 86.4 FL (81-99); MONO# 0.19 X1000 (0.11-0.59); MONO% 2.9 % (1.7-9.3); MPV 10.2 FL (7.4-10.4); NEUT# 5.41 X1000 (1.4-6.5); NEUT% 81.6 % (42.2-75.2); PLT 247 X1000 (130-400); RBC 4.71 XMIL (4.2-5.4); RDW 13.2 % (11.5-14.5); WBC 6.63 X1000 (4.8-10.8)
[2019-03-16 13:07] LABS: BASO# 0.02 X1000 (0.0-0.2); IMM GRAN# 0.02 X1000 (0.0-0.04)
[2019-03-16 13:20] LABS: AGAP 11; ALBUMIN 4.3 g/dL (3.5-5.0); ALKALINE PHOSPHATASE 85 U/L (32-104); BUN 10 mg/dL (8-22); CALCIUM 8.8 mg/dL (8.8-10.2); CHLORIDE 109 mmol/L (98-107); COSMO 285; CREATININE 0.7 mg/dL (0.5-0.9); ESTIMATED GFR > 60; GLUCOSE 122 mg/dL (70-104); GOT 19 U/L (10-30); GPT 12 U/L (10-36); POTASSIUM 3.7 mmol/L (3.5-5.1); SODIUM 143 mmol/L (136-145); TCO2 23 mmol/L (25-35); TOTAL PROTEIN 7.5 g/dL (6.3-8.3)
--- NOTE | 2019-03-16 14:24 | PROVIDER DOCUMENTATION ---
This chart was entered by Pat Sevilla Scribe, acting as scribe for Landon Cee MD. HPI-Rash/Wound/ReCheck - General Chief Complaint: Return/Recheck Stated Complaint: ALLERGIC REACTION Time Seen by Provider: 03/16/19 12:08 Source: patient, family Allergies/Adverse Reactions: Allergies Allergy/AdvReac Type Severity Reaction Status Date / Time No Known Allergies Allergy Verified 06/25/18 08:37 Home Medications: Home Medication List Medication Instructions Recorded Confirmed Last Taken Type Clonazepam [Klonopin] 0.5 mg PO BID 07/23/18 02/11/19 Unknown History Dicyclomine HCl 20 mg PO Q6H PRN PRN #20 tab 07/23/18 02/11/19 Unknown Rx Quetiapine Fumarate [Seroquel] 100 mg PO HS 07/23/18 02/11/19 Unknown History Albuterol Sulfate Inhaler 2 puff INH Q6H PRN PRN #1 inhaler 11/04/18 02/11/19 Unknown Rx [Ventolin Hfa] Ibuprofen [Motrin] 800 mg PO Q8H PRN PRN #20 tab 01/30/19 02/11/19 Unknown Rx Temazepam 15 mg PO HS 02/11/19 02/11/19 Unknown History Amoxicillin/Pot Clavulanate 875 mg PO Q12HR #14 tab 02/12/19 Unknown Rx [Augmentin] Naproxen Sodium [Anaprox Ds] 550 mg PO Q12H PRN PRN #20 tab 02/18/19 Unknown Rx Amoxicillin/Potassium Clav 1 ea PO BID #20 tab 03/16/19 Unknown Rx [Augmentin 875-125 Tablet] Diphenhydramine [Benadryl] 25 mg PO Q4-6H PRN PRN 7 Days #30 03/16/19 Unknown Rx cap Methylprednisolone [Medrol Dosepak] 4 mg PO DIRECTED #1 pkg 03/16/19 Unknown Rx - History of Present Illness-Dermatology Nature of Presenting Problem: 38 yof presents to the ed with returning rash. pt was sent home from ed with rash resolved and given prescriptions. pt sts was on the way to pharmacy when the rash returned and tongue felt like it was swollen. pt sts she instructed to turn the car around and bring her back to ed. pt on exam has minimal rash seen to chest wall and tongue appears to be minimally swollen. pt has no difficultly with airway and nontoxic in appearance Location: reports: chest Quality: reports: itchy Severity: reports: mild Onset/Duration: reports: just prior to arrival Timing: reports: still present, improving Context/Associated Symptoms: reports: rash, other (tongue swelling) Identifiable cause?: No Exposure: reports: unknown cause Modifying Factors: worse with: scratching Locality of [place]: Other (car) Similar Symptoms Previously?: Yes Recently seen or treated by another doctor?: Yes (seen in ed this am) Review of Systems - Adult - REVIEW OF SYSTEMS - ADULT Constitutional: reports: no symptoms reported Eyes: reports: no symptoms reported Ears, Nose, Mouth & Throat: reports: no symptoms reported, mouth swelling (tongue swelling) Cardiovascular: denies: chest pain, palpitations, syncope Respiratory: reports: see HPI. denies: cough, shortness of breath, wheezing Gastrointestinal: denies: abdominal pain, diarrhea, nausea, vomiting Genitourinary: reports: no symptoms reported Musculoskeletal: denies: back pain, neck pain Integumentary: reports: see HPI, itching, rash Neurological: reports: no symptoms reported Psychiatric: reports: no symptoms reported Endocrine: reports: no symptoms reported Hematologic/Lymphatic: reports: no symptoms reported Allergic/Immunologic: reports: no symptoms reported All Other Systems: Reviewed and Negative Past History - Adult - PAST MEDICAL HISTORY-ADULT Review of Records: reports: Nursing Assessment Review, Medications Reviewed Major Childhood Illnesses: reports: denies history Cardiovascular: reports: hyperlipidemia Respiratory: reports: denies history Gastrointestinal: reports: denies history Obstetrical/Gynecological: reports: denies history Genitourinary: reports: denies history Musculoskeletal: reports: denies history Neurological: reports: headaches/migraines Psychiatric: reports: depression Endocrine/Immune: reports: thyroid disorder (hypo) Other Conditions: reports: denies history - PRIOR SURGERIES/PROCEDURES Surgical/Procedure History: reports: appendectomy, hysterectomy, , other (sinus; leep) - IMMUNIZATION STATUS Childhood Immunizations: See Nurse Assessment Flu Vaccine: See Nurse Assessment - FAMILY HISTORY Family History: reviewed, not pertinent - SOCIAL HISTORY Smoking: cigarettes, less than 1 pack/day Provider spent 3-5 mins advising pt. on dangers of tobacco.: Discussed manners to quit use, and f/u contacts for add'l counseling. Substance Use: alcohol Alcohol Use Frequency: occasionally Number of drinks per typical drinking period:: 3-4 drinks Living Situation: family Physical Exam-General - PHYSICAL EXAM-ADULT Initial Vital Signs Reviewed: Yes - CONSTITUTIONAL General Appearance: appears well, alert, no apparent distress - EYES Eyes: PERRL/EOMI, pink conjunctivae - HEAD, EARS, NOSE, MOUTH & THROAT HENMT: normocephalic/atraumatic, moist mucous membranes, normal ENT inspection, TMs normal, pharynx normal, angioedema (mild angioedema) - NECK Neck: non-tender, full range of motion, supple, normal inspection - RESPIRATORY Respiratory: chest non-tender, lungs clear, normal breath sounds - CARDIOVASCULAR Cardiovascular: normal peripheral pulses, regular rate, rhythm - GASTROINTESTINAL (ABDOMEN) Abdominal Exam: normal bowel sounds, non tender, soft - LYMPHATIC Lymphatic: no adenopathy - MUSCULOSKELETAL Back Exam: normal inspection, no CVA tenderness, no vertebral tenderness Extremity: normal range of motion, non-tender, normal gait, normal inspection, no pedal edema, no calf tenderness, normal capillary refill, pelvis stable - SKIN Integumentary: normal color, normal turgor, warm/dry - NEUROLOGIC Neurologic: grossly normal, no motor/sensory deficits - PSYCHIATRIC Psych/Mental Status: normal mood/affect, normal thought content, normal thought process, oriented x 3 Progress - PLAN OF CARE/RESULTS Progress/Plan/Lab Results: Vital Signs - 8 hr 03/16/19 11:50 Temperature 98 F Pulse Rate 89 Respiratory Rate 18 Blood Pressure 141/86 O2 Sat by Pulse Oximetry 98 Laboratory Results - last 24 hr 03/16/19 03/16/19 12:54 12:54 WBC 6.63 RBC 4.71 Hgb 13.8 Hct 40.7 MCV 86.4 MCH 29.3 MCHC 33.9 RDW Std Deviation 13.2 Plt Count 247 MPV 10.2 Immature Gran % (Auto) 0.3 Neut % (Auto) 81.6 H Lymph % (Auto) 14.3 L [place] % (Auto) 2.9 Eos % (Auto) 0.6 Baso % (Auto) 0.3 Immature Gran # (Auto) 0.02 Neut # (Auto) 5.41 Lymph # (Auto) 0.95 L [place] # (Auto) 0.19 Eos # (Auto) 0.04 Baso # (Auto) 0.02 Sodium 143 Potassium 3.7 Chloride 109 H Carbon Dioxide 23 L Anion Gap 11 BUN 10 Creatinine 0.7 Estimated GFR/1.73 m2 > 60 BUN/Creatinine Ratio 14 Glucose 122 H Calculated Osmolality 285 Calcium 8.8 Total Bilirubin 0.50 AST 19 ALT 12 Alkaline Phosphatase 85 Total Protein 7.5 Albumin 4.3 Globulin 3.0 Albumin/Globulin Ratio 1.0 Orders Category Date Time Status Admit - [facility] Routine AdmDCTranf 03/16/19 14:21 Active CBC WITH ELECTRONIC DIFF [HEME] Stat Lab 03/16/19 12:54 Completed CMP [COMPREHENSIVE METABOLIC PANEL] [CHEM] Stat Lab 03/16/19 12:54 Completed Diphenhydramine [Benadryl] Med 03/16/19 12:35 Discontinued 25 mg IV NOW ONE Epinephrine Med 03/16/19 12:35 Discontinued 0.3 mg IM NOW ONE At recheck, pt notes that her rash has resolved but her tongue still feels swollen. Result Diagrams: 03/16/19 12:54 03/16/19 12:54 - CONSULTS/PCP/HOSPITALIST Notification #1 *Consult/PCP/Hospitalist*: hospitalist dr everett Time Discussed: 14:17 Consult Disposition: Admit Departure - Departure Date of Disposition Decision: 03/16/19 Time of Disposition Decision: 14:24 DIAGNOSIS: Allergic reaction, Pyelonephritis, Angioedema Disposition: ADMITTED INPATIENT 09 Certified Medical Emergency: Emergent Condition: Fair Referrals and Follow-Ups: None,PCP [Primary Care Provider] - - Critical Care Note This patient required my direct & personal management of CC.: No Attestation - Physician/ JUSTICE Attestation Patient care was provided by Advanced Practice Provider:: No The physician spent face to face time with patient:: Yes Advanced Practice Provider documentation review:: Supervising physician onsite and consulted in the evaluation and care of this patient. The physician did have a face to face encounter with the patient. This chart was documented by the indicated scribe, (Pat Sevilla Scribe) and accurately reflects the services I performed and decisions made by me, Landon Cee MD, as attested by the provider's signature.
[2019-03-16] MEDS ORDERED: PRILOSEC PO SCH (14:30)
[2019-03-16] MEDS ORDERED: ROCEPHIN 2 GM in NS 50 ML IV SCH (14:30)
[2019-03-16] MEDS: SOLU-MEDROL IV SCH ×2 (15:02→22:52)
--- NOTE | 2019-03-16 15:49 | HISTORY AND PHYSICAL ---
PRIMARY CARE PROVIDER: MORIAH Manley. CHIEF COMPLAINT: Of an allergic reaction and tongue swelling. HISTORY OF PRESENTING ILLNESS: This is a 38-year-old female who presented initially to [facility] ER earlier today with complaints of a rash all over her body. Was given Benadryl 25 mg IM x1, epinephrine 0.3 mg IM x1 and Solu-Medrol 125 mg IM x1. Rash resolved and patient at that time was felt to have pyelonephritis, was given a prescription for Augmentin and was discharged home. On the way home she felt her tongue starting to swell and her rash returned to her upper chest and arms so she came back to the emergency room. Her tongue appeared to be minimally swollen on arrival. She did have the rash to her chest and her upper arms. Was given Benadryl 25 mg IV x1 and epinephrine 0.3 mg IM x1. Her rash is resolving. Her tongue feels less swollen and appears to not be swollen. She also complained of low back pain but no CVS tenderness and low suprapubic abdominal pain so she will be admitted for further evaluation and treatment. PAST MEDICAL HISTORY: Of hyperlipidemia, migraines, depression, hypothyroidism. PAST SURGICAL HISTORY: Appendectomy, hysterectomy, and sinus and LEEP surgery. FAMILY HISTORY: Reviewed and noncontributory. SOCIAL HISTORY: She smokes half pack of cigarettes a day and drinks alcohol on occasion and lives with family and no illicit drug use. ALLERGIES: To amoxicillin and clavulanic acid. HOME MEDICATIONS: A current list will need to be obtained reconciled, reviewed and restarted as appropriate. Placed an order for nursing to update and confirm home medications. LABORATORY DATA: Showed a white blood cell count of 6.63, hemoglobin of 13.8, hematocrit 40.7, platelets 247,000. Sodium 143, potassium 3.7, chloride 109, CO2 23, BUN of 10, creatinine 0.7, glucose 122. REVIEW OF SYSTEMS: She denied any fever, chills, blurred vision. She did complain of tongue feeling swollen, a rash to her entire upper and lower extremities and her chest that was mildly red but non raised. Denied any chest pain, coughing, or shortness of breath. Denied any abdominal pain, constipation, diarrhea, burning or hurting with urination. PHYSICAL EXAMINATION: On arrival showed a temperature of 98 degrees, pulse 89, respirations 18, blood pressure 141/86 saturating 98% on room air. GENERAL: This is a 38-year-old female who is lying in the bed and answers questions appropriately. Speech is clear. HEENT: Normocephalic, atraumatic. Normal ENT inspection. Oropharynx and nares are clear. Pupils are equal, round, reactive to light accommodation. Extraocular movements are intact. NECK: Normal inspection, normal range of motion. LUNGS: Clear to auscultation bilaterally with equal lung expansion and chest wall movement. HEART: With regular rate and rhythm. No murmurs, rubs, or gallops. ABDOMEN: Soft, nontender, nondistended. Bowel sounds are present x4 quadrants. MUSCULOSKELETAL: She has 5/5 strength x4 extremities. NEUROLOGICAL: The cranial nerves 2-12 appear grossly intact. SKIN: She is noted to have a very fine red rash to her upper arm and upper thighs that is very faint in color at this time after receiving her treatment in the ER, it is resolving at this time. Tongue does not appear to be swollen at this time. ASSESSMENT: 1. Allergic reaction from unknown cause. 2. Angioedema from unknown cause, resolving. 3. Likely pyelonephritis. PLAN: She will be admitted to the medical unit at [place], placed on a regular diet. Will give her Pepcid 20 mg p.o. b.i.d., Benadryl 25 mg IV q.6 x 4 doses, Solu-Medrol 40 mg IV q.8 hours, Rocephin 1 gram IV q.24 and received 1st dose in the emergency room. Nursing to update and confirm home medications and we will review and restart as appropriate. Further orders after seen by attending. Patient states she has not had any changes in her soap, detergents or any new recent medications. Dictated by MORIAH García for Geronimo Rosales MD Addendum: Patient seen and examined by myself. Agree with MORIAH note. It reflects my assessment and plan. Patient is being admitted to hospital for observation because of allergic reaction. Will provide Benadryl IV and Solu-medrol IV as well. Will check vitals every four hours. Will monitor her closely. cc: MORIAH Manley MD [facility]
[2019-03-16] MEDS ORDERED: AMBIEN PO PRN (16:42)
[2019-03-16] MEDS: PEPCID PO SCH ×2 (17:00→20:34)
[2019-03-16] MEDS: DEMEROL IV PRN ×2 (17:00→23:02)
[2019-03-16] MEDS: BENADRYL IV SCH (17:01)
[2019-03-16] MEDS: ELOCON CREAM TOP SCH (22:52)
[2019-03-17] MEDS: BENADRYL IV SCH ×2 (01:35→05:30)
[2019-03-17] MEDS: DEMEROL IV PRN ×2 (04:27→09:37)
[2019-03-17] MEDS: SOLU-MEDROL IV SCH (05:30)
[2019-03-17 07:40] VITALS: BP 122/75
[2019-03-17] MEDS: PEPCID PO SCH (09:19)
[2019-03-17] MEDS: ELOCON CREAM TOP SCH (09:20)
--- NOTE | 2019-03-18 02:10 | DISCHARGE SUMMARY ---
ADMISSION DATE: 03/16/2019 DISCHARGE DATE: 03/17/2019 PRIMARY CARE PHYSICIAN: MORIAH Manley. ADMISSION DIAGNOSES: 1. Allergic reaction from unknown cause. 2. Angioedema from unknown cause, resolving. 3. Likely pyelonephritis. DISCHARGE DIAGNOSES: 1. Allergic reaction from unknown cause, resolved. 2. Angioedema from unknown cause, resolved. 3. Likely pyelonephritis. SUMMARY OF FINDINGS: This is a 38-year-old female who had presented to the ER earlier yesterday with complaints of a rash all over her body. Was given Benadryl 25 mg IM x1, epinephrine 0.3 mg IM x1 and Solu-Medrol 125 mg IM x1. Her rash resolved and at that time the patient was felt to have a pyelonephritis, given a prescription for Augmentin and discharged home. On her way home, she felt her tongue starting to swell and her rash returned to the upper chest and arms so she came back to the emergency room. According to the ER physician, her tongue appeared minimally swollen on arrival. She did have a rash to her chest and her upper arms. Was given Benadryl 25 mg IV x1, epinephrine 0.3 mg IM x1, and her rash was resolving at the time of admission. Her tongue did not appear to be swollen and the patient states that it did feel less swollen. She complained of back pain that was low but no CVS tenderness along with some low suprapubic abdominal pain so she was admitted, placed on Pepcid 20 mg p.o. b.i.d., Benadryl 25 mg IV q.6 x4 doses, Solu-Medrol 40 mg IV every 8. We placed her on Rocephin 1 gram IV q.24 and she was admitted. She states that she had not had any changes in any soaps, detergents, or any new recent medications. This morning, she was feeling much better. No evidence of a rash. No tongue swelling and so it was felt that she could safely be discharged home. DISCHARGE MEDICATIONS: Klonopin 0.5 mg p.o. b.i.d., prescription for Nika 180 mg p.o. daily #10 with no refills, Demerol 50 mg p.o. q.4 hours p.r.n. #20 with no refills, a Medrol Dosepak to take as directed, Elocon cream topically b.i.d. #2 to use with no refill, omeprazole 40 mg p.o. daily #14 with no refills. Continue her Seroquel 100 mg p.o. at bedtime and she was to have her Augmentin prescription filled that she received in the emergency room. All discharge instructions were reviewed with the patient and she verbalized understanding. TIME: A 33 minute discharge. Dictated by MORIAH García for Geronimo Rosales MD Addendum: Patient seen and examined by myself. Agree with MORIAH note. It reflects my assessment and plan. Patient is being discharged in stable condition to home and will be seen by PCP in a week. cc: MORIAH García MD Johnna Langford, CRNP [facility]
== END 2019-03-17 11:40 | disposition home or self-care (01) ==
LOC: P.ED 11:42 → P.MEDSURG 11:42
PROVIDERS: ADMIT Internal Medicine; ATTEND Internal Medicine
CPT/HCPCS: 80053; 81003; 85025; A9270; J0171; J0696; J1200; J2175; J2920; J2930; J7030

== ENCOUNTER 2019-10-07 09:55 | Observation (INO) ==
[2019-10-07] MEDS ORDERED: REGLAN IM ONE (11:02)
[2019-10-07] MEDS ORDERED: BENADRYL IM ONE (11:02)
--- NOTE | 2019-10-07 11:42 | PROVIDER DOCUMENTATION ---
HPI-Headache - General Chief Complaint: Extremity Pain Stated Complaint: EXTREMITY PAIN, HEADACHE Time Seen by Provider: 10/07/19 10:50 Source: patient Allergies/Adverse Reactions: Patient Allergies Allergy/AdvReac Type Severity Reaction Status Date / Time amoxicillin [From Augmentin] Allergy Severe ANAPHYLAXIS Verified 09/19/19 23:12 clavulanic acid Allergy Severe ANAPHYLAXIS Verified 09/19/19 23:12 [From Augmentin] prochlorperazine AdvReac NAUSEA Verified 09/19/19 23:12 [From Compazine] Home Medications: Home Medication List Medication Instructions Recorded Confirmed Last Taken Type Levothyroxine [Synthroid] 1 cap PO DAILY 03/16/19 08/01/19 Unknown History Zolpidem [Ambien] 10 mg PO HS PRN PRN 05/03/19 08/01/19 Unknown History Tramadol/APAP [Ultracet 1 ea PO Q6H PRN PRN #10 tab 06/29/19 08/01/19 Unknown Rx 37.5MG/325Mg] Doxycycline 100 mg PO BID 08/01/19 08/01/19 Unknown History Meloxicam [Mobic] 7.5 mg PO DAILY #20 tab 08/01/19 Unknown Rx Ketorolac [Toradol] 10 mg PO Q6H PRN PRN #6 tab 08/15/19 Unknown Rx Loratadine/Pse E.r. 24 Hr 1 ea PO DAILY #20 tab 08/15/19 Unknown Rx [Claritin-D 24 Hr] Methylprednisolone [Medrol Dosepak] 4 mg PO DIRECTED #1 pkg 08/15/19 Unknown Rx Methocarbamol [Robaxin] 500 mg PO BID PRN #30 tab 09/20/19 Unknown Rx - History of Present Illness-Headache Nature of Presenting Problem: Patient is a 38yo F who presents to the ED with complaints of posterior headache, L sided neck pain radiating to scapula, L arm/L leg numbness and weakness. Patient reports the L arm and L leg numbness and weakness began 4 days ago; reports headache began 2 days ago. Reports hx of migraines, but states this is different. Denies known injury/strain. Reports accompanying nausea, photophobia, and phonophobia. Denies visual changes, CP, or SOB. A&Ox3. PERRLA 3m. EOMI. Headache Location: reports: occipital Quality of Pain: reports: pressure, throbbing Severity: reports: moderate Onset/Duration: reports: 2 days ago (headache), 4 days ago (L arm/L leg weakness/numbness) Timing: reports: still present Headache Context: reports: nothing Headache History: reports: occasional headaches, history of migraines Any recent trauma/injury?: reports: none Headache severity at the maximum: moderate Headache Exacerbated by:: reports: light, noise Modifying Factors: improves with: nothing. worse with: movement Associated Symptoms: reports: headache, neck/back pain, nausea, numbness in legs/feet (L), paresthesia. denies: fever/chills, slurred speech Similar Symptoms Previously?: Yes Recently seen or treated by another doctor?: No Review of Systems - Adult - REVIEW OF SYSTEMS - ADULT Constitutional: reports: no symptoms reported. denies: chills, fever Eyes: reports: see HPI, other (photophobia). denies: decreased vision, blurred vision Ears, Nose, Mouth & Throat: reports: no symptoms reported. denies: ear pain, throat pain Cardiovascular: reports: no symptoms reported. denies: chest pain, palpitations Respiratory: reports: no symptoms reported. denies: cough, shortness of breath Gastrointestinal: reports: see HPI, nausea. denies: abdominal pain, diarrhea, vomiting Genitourinary: reports: no symptoms reported Musculoskeletal: reports: see HPI, muscle weakness (L arm/L leg), neck pain Integumentary: reports: no symptoms reported Neurological: reports: see HPI, headache/migraines, numbness. denies: syncope Psychiatric: reports: no symptoms reported Endocrine: reports: no symptoms reported Past History - Adult - PAST MEDICAL HISTORY-ADULT Review of Records: reports: Nursing Assessment Review, Medications Reviewed Major Childhood Illnesses: reports: denies history Cardiovascular: reports: hyperlipidemia Respiratory: reports: denies history Gastrointestinal: reports: denies history Obstetrical/Gynecological: reports: denies history Genitourinary: reports: denies history Musculoskeletal: reports: denies history Neurological: reports: headaches/migraines Psychiatric: reports: depression Endocrine/Immune: reports: thyroid disorder (hypo) Other Conditions: reports: denies history - PRIOR SURGERIES/PROCEDURES Surgical/Procedure History: reports: appendectomy, hysterectomy, , other (sinus; leep) - IMMUNIZATION STATUS Childhood Immunizations: See Nurse Assessment Flu Vaccine: See Nurse Assessment - FAMILY HISTORY Family History: CVA/TIA - SOCIAL HISTORY Smoking: cigarettes Provider spent 3-5 mins advising pt. on dangers of tobacco.: Discussed manners to quit use, and f/u contacts for add'l counseling. Physical Exam- Neurological - Physical Exam-Neuro Initial Vital Signs Reviewed: Yes General Appearance: appears well, alert, no apparent distress. negative: lethargic, slow to respond, obtunded Eye Exam: bilateral eye: normal inspection, PERRL, EOMI HENMT: normocephalic/atraumatic, moist mucous membranes. negative: angioedema Head Injury: no evidence of injury Neck: full range of motion, supple, normal inspection, other (L c-spine paraspinous muscles TTP) Respiratory: chest non-tender, lungs clear, normal breath sounds, no pleuratic chest pain, no respiratory distress, no accessory muscle use. negative: crackles, rales, rhonchi, stridor, wheezing, retractions, splinting Cardiovascular: regular rate, rhythm Peripheral Pulses: radial (R): 2+, radial (L): 2+, dorsalis-pedis (R): 2+, dorsalis-pedis (L): 2+ Extremity: normal range of motion, non-tender youth director Exam: normal hearing, normal speech, PERRL. negative: facial asymmetry, facial droop, facial weakness Coordination/Gait: normal finger to nose. negative: ABN nose to finger (R), ABN nose to finger (L) Motor/Sensory: no pronator drift, sensory deficit (L side), weak motor strength LUE, weak motor strength LLE Neurologic: motor weakness (mild L arm/L leg), sensory deficit (L side). negative: aphasia, EOM palsy, facial droop Integumentary: normal color, warm/dry. negative: cyanosis, jaundice, pallor Psych/Mental Status: normal mood/affect, normal thought content, normal thought process, oriented x 3 - Glascow Coma Scale Best Eye Response: (4) open spontaneously Best Verbal Response: (5) oriented Best Motor Response: (6) obeys commands Total Glascow Score: 15 Progress - PLAN OF CARE/RESULTS Progress/Plan/Lab Results: Vital Signs - 8 hr 10/07/19 09:58 Temperature 98 F Pulse Rate 83 Respiratory Rate 18 Blood Pressure 137/92 O2 Sat by Pulse Oximetry 97 Bedside Urine ED: Urine Bedside Start: 10/07/19 11:00 Freq: ORDERED Status: Active Protocol: Activity Type Activity Date Activity User E-Sign Co-Sign Detail Recorded Client Recorded Date Recorded By Document 10/07/19 12:13 [id number] 10/07/19 12:15 [id number] 10/07/19 12:13 Point of Care [Bedside Point of Care] -Lot # [id number] - Results Negative -Control Line Visible? Yes Laboratory Results - last 24 hr 10/07/19 10/07/19 10/07/19 12:07 12:07 12:07 WBC 7.14 RBC 4.35 Hgb 12.4 Hct 38.6 MCV 88.7 MCH 28.5 MCHC 32.1 L RDW Std Deviation 13.2 Plt Count 258 MPV 10.3 Immature Gran % (Auto) 0.4 Neut % (Auto) 51.4 Lymph % (Auto) 32.5 [place] % (Auto) 10.1 H Eos % (Auto) 4.8 Baso % (Auto) 0.8 Immature Gran # (Auto) 0.03 Neut # (Auto) 3.67 Lymph # (Auto) 2.32 [place] # (Auto) 0.72 H Eos # (Auto) 0.34 Baso # (Auto) 0.06 PT 13.8 INR 1.01 PTT (Actin FS) 30.0 Sodium 145 Potassium 4.2 Chloride 109 H Carbon Dioxide 25 Anion Gap 11 BUN 12 Creatinine 0.8 Estimated GFR/1.73 m2 > 60 BUN/Creatinine Ratio 15 Glucose 93 Calculated Osmolality 288 Calcium 8.9 Total Bilirubin 0.30 AST 16 ALT 10 Alkaline Phosphatase 78 Troponin T Total Protein 7.1 Albumin 4.6 Globulin 3.0 Albumin/Globulin Ratio 2.0 Urine Source Urine Color Urine Turbidity Urine pH Ur Specific [place] Urine Protein Ur Glucose (Stick) Ur Ketones (Stick) Urine Blood Urine Nitrite Urine Bilirubin Urobilinogen Dipstick Urine Leukocytes Urine WBC (Auto) Urine RBC (Auto) U Epithel Cells (Auto) Urine Bacteria (Auto) Urine Opiates Screen Ur Oxycodone Screen Urine Methadone Screen U Propoxyphene Qual Ur Barbituates Screen Ur Tricyclics Screen Ur Phencyclidine Scrn Ur Amphetamines Screen U Methamphetamines Scrn U Benzodiazepines Scrn Urine Cocaine Screen U Cannabinoids Screen 10/07/19 10/07/19 10/07/19 12:07 12:07 12:07 WBC RBC Hgb Hct MCV MCH MCHC RDW Std Deviation Plt Count MPV Immature Gran % (Auto) Neut % (Auto) Lymph % (Auto) [place] % (Auto) Eos % (Auto) Baso % (Auto) Immature Gran # (Auto) Neut # (Auto) Lymph # (Auto) [place] # (Auto) Eos # (Auto) Baso # (Auto) PT INR PTT (Actin FS) Sodium Potassium Chloride Carbon Dioxide Anion Gap BUN Creatinine Estimated GFR/1.73 m2 BUN/Creatinine Ratio Glucose Calculated Osmolality Calcium Total Bilirubin AST ALT Alkaline Phosphatase Troponin T < 0.010 Total Protein Albumin Globulin Albumin/Globulin Ratio Urine Source CLEAN CATCH Urine Color YELLOW Urine Turbidity CLEAR Urine pH 6.5 Ur Specific [place] 1.016 Urine Protein NEGATIVE Ur Glucose (Stick) NEGATIVE Ur Ketones (Stick) NEGATIVE Urine Blood NEGATIVE Urine Nitrite NEGATIVE Urine Bilirubin NEGATIVE Urobilinogen Dipstick NORMAL Urine Leukocytes NEGATIVE Urine WBC (Auto) <10 Urine RBC (Auto) <10 U Epithel Cells (Auto) <10 Urine Bacteria (Auto) NEGATIVE Urine Opiates Screen NONE DETECTED Ur Oxycodone Screen NONE DETECTED Urine Methadone Screen NONE DETECTED U Propoxyphene Qual NONE DETECTED Ur Barbituates Screen NONE DETECTED Ur Tricyclics Screen NONE DETECTED Ur Phencyclidine Scrn NONE DETECTED Ur Amphetamines Screen NONE DETECTED U Methamphetamines Scrn NONE DETECTED U Benzodiazepines Scrn PRESUMPTIVE POSITIVE A Urine Cocaine Screen NONE DETECTED U Cannabinoids Screen NONE DETECTED Orders Category Date Time Status ED: Urine Bedside ORDERED Care 10/07/19 11:00 Active FSBS [Finger Stick Blood Sugar (ED)] DIRECTED Care 10/07/19 11:[address] HEAD/C-SPINE W/O CONTRAST [CT] Stat Exams 10/07/19 11:00 Completed MRA BRAIN W/O CONTRAST [MRI] Routine Exams 10/07/19 13:18 Ordered MRI BRAIN W/O CONTRAST [MRI] Routine Exams 10/07/19 13:18 Ordered CBC WITH ELECTRONIC DIFF [HEME] Stat Lab 10/07/19 12:07 Completed COMPREHENSIVE METABOLIC PANEL [CHEM] Stat Lab 10/07/19 12:07 Completed PROTIME WITH INR [COAG] Stat Lab 10/07/19 12:07 Completed PTT [COAG] Stat Lab 10/07/19 12:07 Completed TROPONIN T Stat Lab 10/07/19 12:07 Completed URINALYSIS W/POSS RFLX CULT [URINALYSIS] Stat Lab 10/07/19 12:07 Completed URINE DRUG SCREEN PL Stat Lab 10/07/19 12:07 Completed Diphenhydramine [Benadryl] Med 10/07/19 11:02 Discontinued 25 mg IM NOW ONE Metoclopramide [Reglan] Med 10/07/19 11:02 Discontinued 10 mg IM NOW ONE Morphine Med 10/07/19 13:12 Discontinued 2 mg IV NOW ONE Morphine Med 10/07/19 13:18 Discontinued 4 mg IM NOW ONE Carotid Ultrasound Routine Ther 10/07/19 13:20 Ordered EKG [EKG] Stat Ther 10/07/19 11:11 Draft Echo Spec/Color Doppler Routine Ther 10/07/19 13:20 Ordered Transfer/Admit Order [TRANSFER] Routine Transfer 10/07/19 13:21 Ordered Lab results, imaging results, and need for admission discussed with patient who agrees with and verbalizes understanding. Result Diagrams: 10/07/19 12:07 10/07/19 12:07 - EKG 1 Time of EKG reading by physician:: 11:40 EKG Read and Signed by:: Mauricio Johnston EKG Interpretation (*Must complete 3 of following elements*): Normal Rate: 65 Rhythm: NSR [place]: normal QRS: normal [place] Interval: normal ST Wave: normal - CT/MRI 1 CT Study: Cervical Spine, Head Impression: See EMR Report ([facility] - [address] [place] [address] [place] [id number] [facility] - [address] [place] [address] Department of Imaging Patient: AGUS VALDOVINOS Date: 10/07/19MR#: [id number] : 1980ADM Status: REG [facility]#: [id number] Age/Sex: 38/FRoom/Bed: Loc: P.ED Ordering Physician: Mayda Kwong Family Physician: BÁRBARA PIÑA Reason for Procedure: Headache; neck pain w/ L arm paresthesia ___ Signed EXAM : CT HEAD/C-SPINE W/O CONTRAST HISTORY: Headache; neck pain w/ L arm paresthesia TECHNIQUE: 1. CT head without contrast 2. CT cervical spine without contrast COMPARISON: None. FINDINGS: Head: No parenchymal hemorrhage. No epidural or subdural hematoma. No subarachnoid hemorrhage. No mass identified on this noncontrasted exam. No hydrocephalus. Complete opacification of the right maxillary sinus. Near complete opacification of the frontal, ethmoid, left sphenoid, and left maxillary sinuses. Inspissated material in the right maxillary sinus. Cervical spine: There is good alignment to the cervical spine. No precervical soft tissue swelling. No subluxation. No fracture. No disc herniation identified. IMPRESSION: Head: No hemorrhage. No injury. Prominent sinusitis Cervical spine: No acute fracture. This exam was performed using automated exposure control, adjustment of mA or kV according to patient size, and/or use of iterative reconstruction technique. Electronically signed by Fermin Huizar 10/07/2019 12:52 PM 10/07/19 1252 Interpreting Physician: Fermin Huizar MD Dictated Date/Time: 10/07/19 1248 cc: Mayda Mccollum; Bárbara Piña) - CONSULTS/PCP/HOSPITALIST Notification #1 *Consult/PCP/Hospitalist*: Dr. Del Valle, Hospitalist Time Discussed: 13:12 Reason/Comments: Headache; LUE/LLE weakness/numbness Consult Disposition: Will see in ED, Admit Departure - Departure Date of Disposition Decision: 10/07/19 Time of Disposition Decision: 13:12 DIAGNOSIS: Left arm weakness, Left leg weakness, Neck pain, Numbness and tingling of left arm and leg Headache Qualifiers: Headache type: unspecified Headache chronicity pattern: acute headache Intractability: not intractable Qualified Code(s): R51 - Headache Disposition: ADMITTED INPATIENT 09 Certified Medical Emergency: Emergent Condition: Stable Referrals and Follow-Ups: Bárbara Piña CRNP [Primary Care Provider] - Discharge Education: Migraine Headache, [id number] - Critical Care Note This patient required my direct & personal management of CC.: No Attestation - Physician/ JUSTICE Attestation Patient care was provided by Advanced Practice Provider:: Yes Advanced Practice Provider:: Mayda Mccollum Advanced Practice Provider documentation review:: The Mid-level provider documentation, treatment plan and medical decision making was reviewed by the physician who agrees with all treatment and medical decision making by the MLP. The physician spent face to face time with patient:: No Advanced Practice Provider documentation review:: Supervising physician onsite and consulted in the evaluation and care of this patient. The physician did not have a face to face encounter with the patient.
[2019-10-07 12:21] LABS: URINE SOURCE CLEAN CATCH
[2019-10-07 12:23] LABS: BASO# 0.06 X1000 (0.0-0.2); BASO% 0.8 % (0.0-0.8); BILIRUBIN URINE NEGATIVE (NEGATIVE); BLOOD URINE NEGATIVE (NEGATIVE); COLOR YELLOW; EOS# 0.34 X1000 (0.0-0.7); EOS% 4.8 % (0.0-10.0); GLUCOSE URINE NEGATIVE (NEGATIVE); HEMATOCRIT 38.6 % (37.0-47.0); HEMOGLOBIN 12.4 g/dL (12.0-16.0); IMM GRAN# 0.03 X1000 (0.0-0.04); IMM GRAN% 0.4 % (0.0-0.5); KETONE URINE NEGATIVE (NEGATIVE); LEUKOCYTES URINE NEGATIVE (NEGATIVE); LYMPH# 2.32 X1000 (1.2-3.4); LYMPH% 32.5 % (20.5-51.1); MCH 28.5 PG (27-31); MCHC 32.1 g/dL (33-37); MCV 88.7 FL (81-99); MONO# 0.72 X1000 (0.11-0.59); MONO% 10.1 % (1.7-9.3); MPV 10.3 FL (7.4-10.4); NEUT# 3.67 X1000 (1.4-6.5); NEUT% 51.4 % (42.2-75.2); NITRITE URINE NEGATIVE (NEGATIVE); PH URINE 6.5; PLT 258 X1000 (130-400); PROTEIN URINE NEGATIVE (NEGATIVE); RBC 4.35 XMIL (4.2-5.4); RDW 13.2 % (11.5-14.5); SP GRAVITY URINE 1.016; TURBIDITY URINE CLEAR (CLEAR); UR EPITHELIAL CELLS <10 /HPF (<10); URINE BACTERIA NEGATIVE /HPF; URINE RBC <10 /HPF (<10); URINE WBC <10 /HPF (<10); UROBILINOGEN URINE NORMAL (NORMAL); WBC 7.14 X1000 (4.8-10.8)
[2019-10-07 12:32] LABS: UR AMPHETAMINES QUAL NONE DETECTED (NONE DETECT); UR BARBITUATES QUAL NONE DETECTED (NONE DETECT); UR BENZODIAZEPIN QUAL PRESUMPTIVE POSITIVE (NONE DETECT); UR CANNABINOIDS QUAL NONE DETECTED (NONE DETECT); UR COCAINE QUAL NONE DETECTED (NONE DETECT); UR METHADONE QUAL NONE DETECTED (NONE DETECT); UR METHAMPHETAMINE QUAL NONE DETECTED (NONE DETECT); UR OPIATES QUAL NONE DETECTED (NONE DETECT); UR OXYCODONE QUAL NONE DETECTED (NONE DETECT); UR PCP QUAL NONE DETECTED (NONE DETECT); UR PROPOXYPHENE QUAL NONE DETECTED (NONE DETECT); UR TCA QUAL NONE DETECTED (NONE DETECT)
[2019-10-07 12:35] LABS: INR 1.01; PROTIME 13.8 Seconds (11.0-16.0)
[2019-10-07 12:36] LABS: AGAP 11; ALBUMIN 4.6 g/dL (3.5-5.0); ALKALINE PHOSPHATASE 78 U/L (32-104); BUN 12 mg/dL (8-22); CALCIUM 8.9 mg/dL (8.8-10.2); CHLORIDE 109 mmol/L (98-107); COSMO 288; CREATININE 0.8 mg/dL (0.5-0.9); ESTIMATED GFR > 60; GLUCOSE 93 mg/dL (70-104); GOT 16 U/L (10-30); GPT 10 U/L (10-36); POTASSIUM 4.2 mmol/L (3.5-5.1); SODIUM 145 mmol/L (136-145); TCO2 25 mmol/L (25-35); TOTAL PROTEIN 7.1 g/dL (6.3-8.3)
--- NOTE | 2019-10-07 12:54 | Diag Imaging Result Doc PS360 ---
EXAM : CT HEAD/C-SPINE W/O CONTRAST HISTORY: Headache; neck pain w/ L arm paresthesia TECHNIQUE: 1. CT head without contrast 2. CT cervical spine without contrast COMPARISON: None. FINDINGS: Head: No parenchymal hemorrhage. No epidural or subdural hematoma. No subarachnoid hemorrhage. No mass identified on this noncontrasted exam. No hydrocephalus. Complete opacification of the right maxillary sinus. Near complete opacification of the frontal, ethmoid, left sphenoid, and left maxillary sinuses. Inspissated material in the right maxillary sinus. Cervical spine: There is good alignment to the cervical spine. No precervical soft tissue swelling. No subluxation. No fracture. No disc herniation identified. IMPRESSION: Head: No hemorrhage. No injury. Prominent sinusitis Cervical spine: No acute fracture. This exam was performed using automated exposure control, adjustment of mA or kV according to patient size, and/or use of iterative reconstruction technique. Electronically signed by Fermin Huizar 10/07/2019 12:52 PM
--- NOTE | 2019-10-07 13:08 | EKG Report ---
Test Performed on : 10/07/2019 11:38:18 AM Test Reason : CP Blood Pressure : / mmHG Vent. Rate : 065 BPM Atrial Rate : 065 BPM P-R Int : 140 ms QRS Dur : 082 ms QT Int : 430 ms P-R-T Axes : 041 014 021 degrees QTc Int : 447 ms Normal sinus rhythm. Normal ECG When compared with ECG of 15-AUG-2019 18:21, (Unconfirmed) No significant change was found Confirmed by Marco A Schuler MD ([id number]), film and video editor Marlene Vega ([id number]) on 11/15/2019 12:37:54 PM
[2019-10-07] MEDS ORDERED: MORPHINE IV ONE (13:12)
[2019-10-07] MEDS ORDERED: MORPHINE IM ONE (13:18)
[2019-10-07] MEDS ORDERED: ATIVAN IV ONE (15:06)
[2019-10-07] MEDS ORDERED: ZOFRAN IV PRN (15:44)
[2019-10-07] MEDS ORDERED: TYLENOL PO PRN (15:44)
[2019-10-07] MEDS ORDERED: ASPIRIN PO ONE (15:51)
[2019-10-07] MEDS: NS 1,000 ML IV SCH (17:36)
--- NOTE | 2019-10-07 18:36 | HISTORY AND PHYSICAL ---
PRIMARY CARE PROVIDER: MORIAH Manley. CHIEF COMPLAINT: Left upper and lower extremity numbness, weakness and pain, vomiting, diarrhea, and posterior headache. HISTORY OF PRESENT ILLNESS: Ms. Mueller is a 38-year-old female who carries a past medical history of hyperlipidemia, migraines, anxiety, depression, and hypothyroidism, who reported to the ED complaining of four days of left-sided numbness in the fingers, forearms, and feet. She describes the pain as intermittent, as well as a constant, stabbing, shooting pain with generalized weakness. She reports two days ago, she started having episodes of vomiting and diarrhea. She has had 10 episodes of each. Her last vomitus and diarrhea was in the ED. She has not been able to eat or drink anything. She states anytime she tries to eat or drink it goes right through her. She also reports a headache in the back of her head that has been ongoing for two days. She reports a little bit of blurred vision, some dizziness, movement does make the pain worse. Some upper abdomen pain that is just more like soreness. The light makes her headache worse. She did have some anxiety feeling in her chest prior to arrival, but no chest pain per se. No palpitations. No fever. She does have chills. She has had no slurred speech. No facial drooping. Workup in the ED, laboratory data is essentially unremarkable. Head and cervical spine CT shows no hemorrhage, prominent sinusitis, no acute fracture, no injury. EKG shows a normal sinus rhythm. We did try to do a brain MRI/MRA. However, the patient was too anxious and too claustrophobic. We will admit her, start her on tramadol and ibuprofen scheduled, IV fluids as she was unable to tolerate any p.o. However, the patient is now in her room eating [employer]. She did receive a total of 6 mg of morphine which she state did nothing for her pain and is asking for Dilaudid, so I did explain to her that we will do lesser methods to try to control her nerve pain to try to get it under control and provide her with antiemetics as well. We will check stool cultures. PAST MEDICAL HISTORY: As per HPI. PAST SURGICAL HISTORY: Appendectomy, sinus surgery x2, LEEP surgery. FAMILY HISTORY: Mother with a permanent pacemaker. Father with MDS and stage IV liver cancer, who is still living. SOCIAL HISTORY: She continues to smoke half a pack of cigarettes per day. Occasional alcohol. Lives with family. Denies any illicit drug use. ALLERGIES: Amoxicillin and Augmentin. HOME MEDICATIONS: 1. Flonase 2 sprays inhaled daily. 2. Ambien 10 mg p.o. at bedtime p.r.n. 3. Synthroid 150 mcg p.o. daily. 4. Clonazepam 1 tablet p.o. b.i.d. REVIEW OF SYSTEMS: Completely negative, except for those mentioned in the HPI. PHYSICAL EXAMINATION: VITAL SIGNS: Temperature is 97.7 degrees, heart rate 66, respirations 20, blood pressure 133/83, O2 is 98% on room air. GENERAL: Ms. Mueller is a 38-year-old female who is lying in the bed in no acute distress. HEENT: Atraumatic, normocephalic. PERRL. NECK: Supple. Trachea midline. CARDIOVASCULAR: S1, S2 appreciated. No murmurs, gallops, rubs noted. RESPIRATORY: Lung sounds clear bilaterally. GASTROINTESTINAL: Soft, nontender, nondistended. Positive bowel sounds in 4 quadrants. EXTREMITIES: Lower extremities negative for edema. MUSCULOSKELETAL: Left upper extremity about 4/5, right upper extremity 5/5, left lower extremity 4/5, right lower extremity 5/5. NEUROLOGIC: No focal deficits noted. She is awake, alert, and oriented x4. Follows commands. Moves all extremities. No pronator drift. Tongue is midline. Smile is symmetrical. DIAGNOSTIC DATA: Head and cervical spine CT per HPI. LABORATORY DATA: White count 7, hemoglobin and hematocrit 12 and 38, platelet count 258,000. Sodium 145, potassium 4.2, BUN 12, creatinine 0.8, blood glucose is 93. Troponin less than 0.010. Urinalysis is negative. Toxicology positive for benzodiazepines. ASSESSMENT AND PLAN: 1. Probable migraine with left upper and lower extremity weakness, numbness, with some possible nerve pain. We will continue with Tylenol, ibuprofen, and tramadol. Head CT and cervical spine CT were negative. check B12 and folate. 2. Nausea, vomiting, and diarrhea reported numerous episodes. We will continue with antiemetics, IV fluids. The patient reports not being able to hold anything down. However, she is now eating [employer]. Does not appear to have any issues at this time, but she was placed on a clear liquid diet. 3. Migraine history. Aware. 4. Hyperlipidemia. 5. Anxiety and depression. 6. Hypothyroidism. We will check a TSH. 7. Further recommendations to follow physician evaluation, laboratory and diagnostic data. Dictated by MORIAH Marquez for Chiki Del Valle MD cc: Chiki Del Valle MD MTDD
--- NOTE | 2019-10-07 18:39 | HISTORY AND PHYSICAL ---
ADDENDUM REPORT: Patient seen and examined by myself. Full note dictated and discussed with nurse practitioner. Patient notes that she started having headache posteriorly with left arm, left leg pain, weakness about 4 days ago. She presented to the ER today. She also notes that she has had nausea, photophobia, and phonophobia. States that Dilaudid typically help. We are going to admit her to the hospital, follow her. Discussed with her that we should not use Dilaudid at this point, and we will continue to follow. cc: Chiki Del Valle MD
[2019-10-07] MEDS: MOTRIN PO SCH (20:11)
[2019-10-07] MEDS: PRILOSEC PO SCH (20:11)
[2019-10-07] MEDS: ULTRAM PO SCH (20:11)
[2019-10-08] MEDS: ULTRAM PO SCH (05:01)
[2019-10-08] MEDS: NS 1,000 ML IV SCH (06:27)
[2019-10-08 06:33] LABS: BASO# 0.06 X1000 (0.0-0.2); BASO% 0.8 % (0.0-0.8); EOS# 0.49 X1000 (0.0-0.7); EOS% 6.9 % (0.0-10.0); HEMATOCRIT 37.9 % (37.0-47.0); IMM GRAN# 0.02 X1000 (0.0-0.04); IMM GRAN% 0.3 % (0.0-0.5); LYMPH# 3.05 X1000 (1.2-3.4); LYMPH% 43.1 % (20.5-51.1); MCH 28.2 PG (27-31); MCHC 31.7 g/dL (33-37); MCV 89.2 FL (81-99); MONO# 0.73 X1000 (0.11-0.59); MONO% 10.3 % (1.7-9.3); MPV 10.3 FL (7.4-10.4); NEUT# 2.72 X1000 (1.4-6.5); NEUT% 38.6 % (42.2-75.2); PLT 250 X1000 (130-400); RBC 4.25 XMIL (4.2-5.4); RDW 13.4 % (11.5-14.5); WBC 7.07 X1000 (4.8-10.8)
[2019-10-08 06:42] VITALS: BP 106/67
[2019-10-08 06:59] LABS: AGAP 11; ALBUMIN 3.8 g/dL (3.5-5.0); ALKALINE PHOSPHATASE 65 U/L (32-104); BUN 12 mg/dL (8-22); CHLORIDE 108 mmol/L (98-107); COSMO 279; CREATININE 0.8 mg/dL (0.5-0.9); ESTIMATED GFR > 60; GLUCOSE 92 mg/dL (70-104); GOT 13 U/L (10-30); GPT 8 U/L (10-36); POTASSIUM 3.7 mmol/L (3.5-5.1); SODIUM 140 mmol/L (136-145); TCO2 21 mmol/L (25-35); TOTAL PROTEIN 6.3 g/dL (6.3-8.3)
[2019-10-08] MEDS ORDERED: SYNTHROID PO SCH (07:00)
[2019-10-08 07:26] LABS: FREE T4 0.55 ng/dL (0.93-1.70); TSH 48.85 uIUmL (0.27-4.20)
[2019-10-08] MEDS ORDERED: SYNTHROID PO ONE (07:55)
[2019-10-08] MEDS: MOTRIN PO SCH (08:45)
[2019-10-08] MEDS: PRILOSEC PO SCH (08:45)
[2019-10-08] MEDS ORDERED: ASPIRIN PO SCH (09:00)
--- NOTE | 2019-10-08 14:50 | DISCHARGE SUMMARY ---
ADMISSION DATE: 10/07/2019 DISCHARGE DATE: 10/08/2019 DISCHARGE DIAGNOSES: 1. Hypothyroidism. TSH is 48. 2. Migraine improved. 3. Nausea, vomiting improved. 4. Hyperlipidemia. 5. Chronic anxiety and depression. 6. Lower extremity numbness, resolved. 7. Constipation. BRIEF HOSPITAL COURSE: The patient is a 38-year-old female who presented to the emergency department with vague aches and pains and numbness. Thankfully, most of this has completely resolved. She is feeling better. We did check a TSH which was 48. Patient states that she does take her thyroid medication at home therefore we increased her Synthroid from 150 to 300. She will follow up in 1 week with her primary care to recheck her thyroid level. Thankfully, otherwise, she had an uneventful hospital course and will be discharged home. TIME SPENT: Greater than 30 minutes was spent in total care. DISCHARGE INSTRUCTIONS: Discussed with patient that she needs to follow up in 1 week to recheck her labs. Otherwise, no changes made on her diet or activity. cc: Chiki Del Valle MD
--- NOTE | 2019-10-08 15:03 | DISCHARGE SUMMARY ---
ADMISSION DATE: 10/07/2019 DISCHARGE DATE: 10/08/2019 PRIMARY CARE PHYSICIAN: Bárbara MAJOR PERTINENT PROCEDURES: Cervical spine CT, no hemorrhage, no injury, prominent sinusitis. Cervical spine no acute injury. EKG normal sinus rhythm. DISCHARGE DIAGNOSES: 1. Probable migraine with associated left upper and lower extremity weakness numbness and possible nerve pain. Head CT and cervical spine CT were negative. B12 levels are normal. However, her TSH was 48.85 and free T4 was 0.55. Her Synthroid has been doubled. She was placed on Tylenol, ibuprofen and tramadol which she felt this helped her symptoms. She will be discharged back home with her today. 2. Nausea, vomiting, and diarrhea. Clostridium difficile was negative. No more episodes of vomiting. She had 1 formed bowel movement. She was tolerating a regular diet. 3. Migraine history. Aware. 4. Hyperlipidemia. 5. Anxiety and depression. 6. Hypothyroidism. The patient reports that she is regularly taking her Synthroid. Her Synthroid has been increased to 300 mcg p.o. daily. Given her lab values, she will need to follow up closely with her primary care provider to be rechecked. HOSPITAL COURSE: Briefly, Ms. uMeller is a 38-year-old female with a past medical history of hyperlipidemia and migraines, anxiety and depression, hypothyroidism, who came to the ED complaining of 4 days of left-sided numbness in the fingers, forearms and feet with an intermittent as well as constant stabbing shooting pain with generalized weakness and then 2 days of a posterior headache as well as nausea, vomiting, and diarrhea. She reported not been able to eat or drink anything. Head and cervical spine CT in the ED was negative. We did try to obtain a brain MRI/MRA. However, the patient states she is claustrophobic and became too anxious and was not able to participate. We initiated her on tramadol, ibuprofen and Tylenol as well as IV fluids. She did receive 6 mg total of morphine in the ED that she reported did nothing for her pain. She was asking for Dilaudid. We did explain to her that we would not be doing Dilaudid for nerve pain. We did put her on a clear liquid diet. However, she was eating [employer] in the room upon assessment, she was refusing p.o. Tylenol and this morning, she states that the tramadol and ibuprofen did help some, and was requesting to be discharged back home. VITAL SIGNS: At time of discharge, temperature is 97.6 degrees, heart rate 62, respirations 16, blood pressure 106/67, O2 is 99% on room air. DISCHARGE DIET: Regular. DISCHARGE MEDICATIONS: 1. Ambien 10 mg p.o. at bedtime p.r.n. 2. Clonazepam 0.5 mg p.o. b.i.d. 3. Flonase 2 sprays inhaled daily. 4. Synthroid 300 mcg p.o. daily. FOLLOWUP: Ms. Mueller is being discharged back home with self care. DISCHARGE INSTRUCTIONS: She is to follow up with her primary care provider to have her thyroid levels rechecked. She is to take all medications as prescribed. She can return to the ED or call 911 for any worsening of symptoms. Dictated by MORIAH Marquez for Chiki Del Valle MD cc: MD Bárbara Camp CRNP
== END 2019-10-08 10:29 | disposition home or self-care (01) ==
LOC: P.MEDSURG 09:55 → P.ED 09:55
PROVIDERS: ATTEND Family Medicine